=== PATIENT | male | born 1950 | race Caucasian/White ===

== ENCOUNTER 2017-06-04 02:57 | Emergency (ER) | payer OTHER ==
[~2017-06-04] VITALS: Ht 172.7 cm; Wt 81.0 kg
[2017-06-04 02:59] VITALS: Ht 172.7 cm; Wt 81.0 kg
[2017-06-04] MEDS ORDERED: ALBUTEROL 0.083% (NEB) 2.5 MG/3 ML AMP NEB STA (06:22)
[2017-06-04] MEDS ORDERED: IPRATROPIUM (NEB) 0.5 MG/2.5 ML AMP NEB STA (06:22)
[2017-06-04] MEDS ORDERED: predniSONE 20 MG TAB PO STA (06:22)
--- NOTE | 2017-06-04 07:20 | ERD ---
ER Documentation Chief Complaint Chief Complaint cough x 1 month, phlegm, chest congestion, sob today HPI This is a 66-year-old male who presents the emergency department today complaining of cough for the past several months. States he has phlegm and some chest congestion. States he has some shortness of breath. States that he has seen his primary care doctor and was told to come to the ER. Denies any fevers or chills. States that he stop smoking cigarettes many years ago. States that he took antibiotics about a year ago. ROS All systems reviewed and are negative except as per history of present illness. Medications Home Meds Active Scripts Albuterol Sulfate* (Ventolin HFA*) 18 Gm Hfa.aer.ad, 2 PUFF INHALATION Q4H, #1 INHALER Prov:VENU KLEIN PA-C 06/04/17 Azithromycin* (Zithromax*) 250 Mg Tablet, 250 MG PO .ZPACK DIRECTED, #6 TAB TAKE 500 MG (2 TABS) THE FIRST DAY THEN 250 MG (1 TAB) DAYS 2-5 Prov:VENU KLEIN PA-C 06/04/17 PMhx/Soc Medical and Surgical Hx: pt denies Medical Hx, pt denies Surgical Hx Hx Alcohol Use: No Hx Substance Use: No Hx Tobacco Use: No Smoking Status: Never smoker Physical Exam Vitals Vital Signs Date Time Temp Pulse Resp B/P Pulse Ox O2 Delivery O2 Flow Rate FiO2 06/04/17 06:40 76 24 96 21 06/04/17 02:59 97.2 76 20 156/82 96 Physical Exam Const: talkative, NAD Head: Atraumatic Eyes: Normal Conjunctiva ENT: Normal External Ears, Nose and Mouth. Neck: Full range of motion..~ No meningismus. Resp: Coarse breath sounds bilaterally in all lung gonzalez. Cardio: Regular rate and rhythm, no murmurs Abd: Soft, non tender, non distended. Normal bowel sounds Skin: No petechiae or rashes Back: No midline or flank tenderness Ext: No cyanosis, or edema Neur: Awake and alert Psych: Normal Mood and Affect Results 24 hrs Current Medications Medications (Trade) Dose Ordered Sig/Jayden Route PRN Reason Start Time Stop Time Status Last Admin Dose Admin Albuterol (Proventil 0.083% (Neb)) 5 mg ONCE STAT NEB 06/04/17 06:22 06/04/17 06:24 DC 06/04/17 06:44 Ipratropium [place] (Atrovent 0.02% (Neb)) 0.5 mg ONCE STAT NEB 06/04/17 06:22 06/04/17 06:24 DC 06/04/17 06:44 Prednisone (Prednisone) 60 mg ONCE STAT PO 06/04/17 06:22 06/04/17 06:24 DC 06/04/17 06:30 DIAGNOSTIC IMAGING REPORT Patient: MIQUEL SOUSA : 1950 Age: 66 Sex: M MR #: [id number] DOS: 06/04/17621 Ordering MD: VENU KLEIN PA-C Location: [facility] Room/Bed: PROCEDURE: XR Chest. CLINICAL INDICATION: Asthma exacerbation. TECHNIQUE: Single frontal view of the chest was obtained. COMPARISON: None FINDINGS: The cardiomediastinal silhouette is normal in size. There are aortic calcifications. No focal consolidation is seen. Lung volumes are shallow with mild bibasilar opacities, likely representing atelectasis. No pleural effusion is seen. No definite pneumothorax. No acute osseous abnormality. IMPRESSION: 1. Shallow lung volumes with mild bibasilar opacities, likely representing atelectasis. RPTAT: [facility] Physician [place] Date Time Electronically viewed and signed by Thomas Montague Physician on 06/04/2017 07:22 PH/ CC: VENU KLEIN PA-C Procedures/MDM This is a 66-year-old male who presents the emergency department today complaining of cough for "months". Patient is afebrile and otherwise well- appearing. He is very talkative in the exam room. His oxygen saturation is 96 % however given patient's duration of symptoms and age I did obtain a chest x- ray. Patient was also given a breathing treatment as he had some coarse breath sounds on physical exam. He was also given p.o. prednisone Chest X-ray shows shallow lung volumes with mild bibasilar opacities likely representing atelectasis. There is no pleural effusion or pneumothorax. Portable feeling significantly better after a breathing treatment and stated " I can breath again". Symptoms at this time is consistent with lower respiratory infection. Given patients duration of symptoms and physical exam I will give the patient a prescription for azithromycin, and ventolin inhaler. Suspicion for PE, abscess, pleural effusion or pneumothorax. At this time the patient is stable for discharge and outpatient management. Patient should follow up with their PCP in the next 1-2 days. They may return to the emergency department sooner for any persistent or worsening of symptoms. Patient understood and agreed with the plan. Discussed the patient with Dr. Kinney and he is in agreement with the plan. Departure Diagnosis: Primary Impression: Cough Condition: Fair VENU KLEIN PA-C Jun 04, 2017 07:20
[2017-06-04] MEDS ORDERED: AZIT250T94 PO (07:31)
[2017-06-04] MEDS ORDERED: ALBU18HF INHALATION (07:32)
== END 2017-06-04 07:42 | disposition home or self-care (01) ==
LOC: FTE 02:57
DX: R05 Cough (principal)
CPT/HCPCS: 71010; 94664; 99284; J7512

== ENCOUNTER 2017-06-08 07:36 | Emergency (ER) | payer OTHER ==
[~2017-06-08] VITALS: Wt 79.2 kg
[~2017-06-08 07:36] MED LIST: ALBU18HF INHALATION; AZIT250T94 PO
[2017-06-08] MEDS ORDERED: ALBUTEROL 0.083% (NEB) 2.5 MG/3 ML AMP HHN STA (07:57)
[2017-06-08] MEDS ORDERED: predniSONE 50 MG TAB PO ONE (08:00)
[2017-06-08] MEDS ORDERED: IPRATROPIUM (NEB) 0.5 MG/2.5 ML AMP HHN ONE (08:00)
--- NOTE | 2017-06-08 08:01 | ERD ---
ER Documentation Chief Complaint Chief Complaint sob,productive cough , seen here last tuesday HPI Patient is a 66-year-old male who presents to the ER with gradual onset, constant, progressive cough productive of yellow sputum associate with shortness of breath for the last 2-3 days. The patient was seen in the ER 5 days ago with the same symptoms and was prescribed a Z-Aydin. He states that he received a breathing treatment and his symptoms improved. He had a rebound and symptoms started 2-3 days ago. He has an extensive smoking history but does not currently smoke. He denies fever, vomiting, chest pain, back pain. ROS All systems reviewed and are negative except as per history of present illness. Medications Home Meds Active Scripts Prednisone (Prednisone) 50 Mg Tab, 50 MG PO DAILY for 4 Days, TAB Prov:KYLE ESTRADA MD 06/08/17 Albuterol Sulfate* (Ventolin HFA*) 18 Gm Hfa.aer.ad, 2 PUFF INHALATION Q4H, #1 INHALER Prov:VENU KLEIN PA-C 06/04/17 Discontinued Scripts Azithromycin* (Zithromax*) 250 Mg Tablet, 250 MG PO .ZPACK DIRECTED, #6 TAB TAKE 500 MG (2 TABS) THE FIRST DAY THEN 250 MG (1 TAB) DAYS 2-5 Prov:VENU KLEIN PA-C 06/04/17 Allergies Allergies: Coded Allergies: No Known Allergy (Unverified , 06/08/17) PMhx/Soc Medical history: None Past surgical history: Denies Social history: Former smoker, quit 1 year ago, denies alcohol or illicit drugs History of Surgery: No Anesthesia Reaction: No Hx Neurological Disorder: No Hx Respiratory Disorders: No Hx Cardiac Disorders: No Hx Psychiatric Problems: No Hx Miscellaneous Medical Probl: No Hx Alcohol Use: No Hx Substance Use: No Hx Tobacco Use: No Smoking Status: Never smoker FmHx Noncontributory Physical Exam Vitals Vital Signs Date Time Temp Pulse Resp B/P Pulse Ox O2 Delivery O2 Flow Rate FiO2 06/08/17 11:50 98.1 70 21 159/89 95 Room Air 06/08/17 11:07 93 Room Air 06/08/17 09:09 Nasal Cannula 2.0 06/08/17 09:09 76 21 147/85 97 Nasal Cannula 2.0 06/08/17 08:21 2.0 06/08/17 08:21 95 18 95 Nasal Cannula 2.0 06/08/17 07:39 98.1 90 18 134/96 91 Physical Exam Const: Alert, no acute distress Head: Atraumatic Eyes: Normal Conjunctiva no pallor, no icterus ENT: Normal External Ears, Nose and Mouth. Memory is moist Neck: Full range of motion. No JVD Resp: Clear to auscultation bilaterally, slightly prolonged expirations and pursed lip breathing, no retractions, no rales, no wheezes Cardio: Regular rate and rhythm, no murmurs Abd: Soft, non tender, non distended. Skin: No petechiae or rashes Ext: No cyanosis, or edema Neur: Awake and alert cranial nerves II through XII intact bilaterally, strength and sensation full in 4 extremities. Psych: Normal Mood and Affect Results 24 hrs Current Medications Medications (Trade) Dose Ordered Sig/Jayden Route PRN Reason Start Time Stop Time Status Last Admin Dose Admin Albuterol (Proventil 0.083% (Neb)) 5 mg ONCE STAT [facility] 06/08/17 07:57 06/08/17 07:59 DC 06/08/17 08:20 Prednisone (Prednisone) 50 mg ONCE ONCE PO 06/08/17 08:00 06/08/17 08:01 DC 06/08/17 08:13 Ipratropium [place] (Atrovent 0.02% (Neb)) 0.5 mg ONCE ONCE N 06/08/17 08:00 06/08/17 08:01 DC 06/08/17 08:20 Procedures/MDM MDM: Patient is a 66-year-old male with extensive smoking history who was seen in the ER last week for productive cough and shortness of breath. He responded well to albuterol and was discharged with a Z-Aydin. He returns today with a recurrence of symptoms. He has not been smoking. His chest x-ray does not show signs of pneumonia. He does not have respiratory distress. He does not have symptoms that are concerning for coronary ischemia or pulmonary embolism. He was given a nebulizer treatment in the ER with significant improvement. He was satting in the low to mid 90s on room air after treatment. He did not have significant wheezing. I will discharge him with a 4 day course of prednisone, and have advised him to follow-up with his PMD. He has an albuterol inhaler at home. I suspect that he has underlying COPD from smoking, but this diagnosis has not yet been established. Departure Diagnosis: Primary Impression: Acute bronchitis Bronchitis organism: unspecified organism Qualified Code: J20.9 - Acute bronchitis, unspecified organism Condition: KYLE Luis MD Jun 08, 2017 08:01
--- NOTE | 2017-06-08 08:27 | RADRPT ---
PROCEDURE: XR Chest. CLINICAL INDICATION: Cough TECHNIQUE: AP Portable chest. COMPARISON: 06/04/2017 chest x-ray FINDINGS: The soft tissues and bones are remarkable for mild thoracic spondylosis and bilateral acromioclavicu lar osteoarthropathy. Bibasilar discoid atelectasis are prominent interstitium is again noted howeve r decreased from prior study. The heart size is normal. Mild vascular calcifications are present of the thoracic aorta. No focal infiltrates, masses, or effusions are noted. No pneumothorax is presen t. IMPRESSION: 1. Interval decreased bibasilar atelectasis or interstitial infiltrates. 2. Mild atherosclerotic vascular disease 3. Thoracic spondylosis and bilateral acromioclavicular osteoarthropathy RPTAT: HDC .Sri Luna MD, Date Time Electronically viewed and signed by .Sir Luna MD, on 06/08/2017 08:26 .C/
[2017-06-08] MEDS ORDERED: PRED50 PO (11:12)
[2017-06-08 11:50] VITALS: BP 159/89; PULSE 70; RESP 21; TEMP 98.1
== END 2017-06-08 12:05 | disposition home or self-care (01) ==
LOC: E/R 07:36
DX: J20.9 Acute bronchitis, unspecified (principal)
CPT/HCPCS: 71010; 94664; 99283; J7512

== ENCOUNTER 2017-06-14 15:10 | Emergency (ER) | payer OTHER ==
[~2017-06-14] VITALS: Ht 172.7 cm; Wt 79.0 kg
[~2017-06-14 15:10] MED LIST changes: -AZIT250T94 PO; +PRED50 PO
[2017-06-14 15:14] VITALS: Ht 172.7 cm; Wt 79.0 kg
[2017-06-14] MEDS ORDERED: ALBUTEROL 0.083% (NEB) 2.5 MG/3 ML AMP HHN STA ×2 (16:27→18:49)
[2017-06-14] MEDS ORDERED: IPRATROPIUM (NEB) 0.5 MG/2.5 ML AMP HHN ONE (16:30)
[2017-06-14 17:56] LABS: BASOPHILS % 0.4 % (0.0-2.0); EOSINOPHILS # 0.6 10^3/ul (0.0-0.5); EOSINOPHILS % 6.3 % (0.0-7.0); HEMATOCRIT 42.6 % (42.0-52.0); HEMOGLOBIN 14.2 g/dl (14.0-18.0); LYMPHOCYTES % 21.9 % (15.0-51.0); MEAN CORPUSCULAR HEMOGLOBIN 31.7 pg (29.0-33.0); MEAN CORPUSCULAR HGB CONC 33.3 g/dl (32.0-37.0); MEAN CORPUSCULAR VOLUME 95.1 fl (82.0-101.0); MEAN PLATELET VOLUME 11.8 fl (7.4-10.4); MONOCYTE # 0.8 10^3/ul (0.3-0.9); MONOCYTES % 8.6 % (0.0-11.0); NEUTROPHIL # 5.7 10^3/ul (1.6-7.5); PLATELET COUNT 184 10^3/UL (140-415); RED BLOOD COUNT 4.48 10^6/ul (4.70-6.10); RED CELL DISTRIBUTION WIDTH 11.9 % (11.5-14.5); WHITE BLOOD COUNT 9.2 10^3/ul (4.8-10.8)
[2017-06-14 18:22] LABS: CALCIUM 9.4 mg/dl (8.4-10.2); CREATININE 1.11 mg/dl (0.61-1.24)
--- NOTE | 2017-06-14 18:44 | RADRPT ---
PROCEDURE: XR Chest. CLINICAL INDICATION: Cough. Chest pain. TECHNIQUE: Single frontal view of the chest was obtained COMPARISON: Chest radiograph dated June 08, 2017. FINDINGS: The heart and mediastinum are within normal limits. Aortic calcifications are present. The lungs are clear. There is no pleural effusion or pneumothorax. Degenerative changes of the spine and shoulder joints are present. IMPRESSION: 1. No acute cardiopulmonary disease. RPTAT:AAJJ Justo Gonzalez Physician Date Time Electronically viewed and signed by Justo Gonzalez Physician on 06/14/2017 18:44 QL/
[2017-06-14] MEDS ORDERED: CEPASTAT LOZENGE MT ONE (19:30)
[2017-06-14] MEDS ORDERED: PRED20TA PO (20:18)
[2017-06-14] MEDS ORDERED: HYDR-906 PO (20:18)
[2017-06-14] MEDS ORDERED: LEVO500T72 PO (20:18)
--- NOTE | 2017-06-14 20:29 | ERD ---
ER Documentation Chief Complaint Chief Complaint cough , sob x 1 week HPI This 66-year-old male presents the third time for cough and shortness of breath. He has no chest pain except for when he coughs along his lateral ribs bilaterally. He denies fevers and chills. Does have a history of smoking. ROS All systems reviewed and are negative except as per history of present illness. Medications Home Meds Active Scripts Hydrocodone/Acetaminophen ([place] 5-325 Tablet) 1 Each Tablet, 1 EACH PO Q6, #14 TAB Prov:JOSH GERMAIN DO 06/14/17 Prednisone* (Prednisone*) 20 Mg Tab, 60 MG PO DAILY for 5 Days, TAB Prov:JOSH GERMAIN DO 06/14/17 Levofloxacin* (Levaquin*) 500 Mg Tablet, 500 MG PO DAILY for 7 Days, TAB Prov:JOSH GERMAIN DO 06/14/17 Prednisone (Prednisone) 50 Mg Tab, 50 MG PO DAILY for 4 Days, TAB Prov:KYLE ESTRADA MD 06/08/17 Albuterol Sulfate* (Ventolin HFA*) 18 Gm Hfa.aer.ad, 2 PUFF INHALATION Q4H, #1 INHALER Prov:VENU KLEIN PA-C 06/04/17 Discontinued Scripts Azithromycin* (Zithromax*) 250 Mg Tablet, 250 MG PO .MatthewPACK DIRECTED, #6 TAB TAKE 500 MG (2 TABS) THE FIRST DAY THEN 250 MG (1 TAB) DAYS 2-5 Prov:VENU KLEIN PA-C 06/04/17 Allergies Allergies: Coded Allergies: No Known Allergy (Unverified , 06/08/17) PMhx/Soc History of Surgery: No Anesthesia Reaction: No Hx Neurological Disorder: No Hx Respiratory Disorders: No Hx Cardiac Disorders: No Hx Psychiatric Problems: No Hx Miscellaneous Medical Probl: No Hx Alcohol Use: No Hx Substance Use: No Hx Tobacco Use: No Physical Exam Vitals Vital Signs Date Time Temp Pulse Resp B/P Pulse Ox O2 Delivery O2 Flow Rate FiO2 06/14/17 19:05 98 20 99 21 06/14/17 16:36 89 18 96 21 06/14/17 15:14 98.2 100 20 185/89 94 Physical Exam Const: [] Moderate distress Head: Atraumatic Eyes: Normal Conjunctiva ENT: Normal External Ears, Nose and Mouth. Neck: Full range of motion..~ No meningismus. Resp: Bilateral expiratory wheezing with prolonged expiratory time Cardio: Regular rate and rhythm, no murmurs Skin: No petechiae or rashes Ext: No cyanosis, or edema Neur: Awake and alert oriented 3, no focal deficits Psych: Normal Mood and Affect Result Diagram: 06/14/17 1740 06/14/17 1740 Results 24 hrs Laboratory Tests Test 06/14/17 17:40 White Blood Count 9.210^3/ul Red Blood Count 4.4810^6/ul Hemoglobin 14.2g/dl Hematocrit 42.6% Mean Corpuscular Volume 95.1fl Mean Corpuscular Hemoglobin 31.7pg Mean Corpuscular Hemoglobin Concent 33.3g/dl Red Cell Distribution Width 11.9% Platelet Count 49214^3/UL Mean Platelet Volume 11.8fl Neutrophils % 62.0% Lymphocytes % 21.9% Monocytes % 8.6% Eosinophils % 6.3% Basophils % 0.4% Nucleated Red Blood Cells % 0.0/100WBC Neutrophils # 5.710^3/ul Lymphocytes # 2.010^3/ul Monocytes # 0.810^3/ul Eosinophils # 0.610^3/ul Basophils # 0.010^3/ul Nucleated Red Blood Cells # 0.010^3/ul Sodium Level 141mmol/L Potassium Level 4.0mmol/L Chloride Level 101mmol/L Carbon Dioxide Level 31mmol/L Anion Gap 13 Blood Urea Nitrogen 19mg/dl Creatinine 1.11mg/dl Glucose Level 110mg/dl Calcium Level 9.4mg/dl B-Type Natriuretic Peptide 191PG/ML Current Medications Medications (Trade) Dose Ordered Sig/Jayden Route PRN Reason Start Time Stop Time Status Last Admin Dose Admin Albuterol (Proventil 0.083% (Neb)) 5 mg ONCE STAT [facility] 06/14/17 16:27 06/14/17 16:28 DC 06/14/17 16:36 Ipratropium [place] (Atrovent 0.02% (Neb)) 0.5 mg ONCE ONCE [facility] 06/14/17 16:30 06/14/17 16:31 DC 06/14/17 16:36 Albuterol (Proventil 0.083% (Neb)) 5 mg ONCE STAT [facility] 06/14/17 18:49 06/14/17 18:53 DC 06/14/17 19:04 Phenol (Cepastat Lozenge) 1 lozenge ONCE ONCE [place] 06/14/17 19:30 06/14/17 19:31 DC 06/14/17 19:42 Procedures/MDM 66-year-old male with acute bronchitis with wheezing. Likely does have a component of undiagnosed COPD. Acquired to breathing treatments to minimize the wheezing. Does still have mild wheezing. I offered the patient admission he said he deathly does not want to stay in the hospital. I am going to discharge him with Levaquin as this level of coughing and shortness of breath is not normal to him and he did not respond to azithromycin. Also discharging with 5 days of 60 mg prednisone. Instructed him to see his primary care doctor and obtain echocardiogram also. He has a very minimally elevated BNP. No signs of acute cardiac ischemia. EKG interpretation normal sinus rhythm rate of 84, normal axis, normal intervals , no ST or T-wave changes concerning for acute ischemia. 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 Departure Diagnosis: Primary Impression: Acute bronchitis Additional Impression: Respiratory distress Condition: Fair Patient Instructions: Bronchitis With Wheezing (Adult) Additional Instructions: Call your primary care doctor TOMORROW for an appointment during the next 2-3 days.See the doctor sooner or return here if your condition worsens before your appointment time. JOSH GERMAIN DO Jun 14, 2017 20:29
[2017-06-14 20:33] VITALS: BP 159/91; PULSE 98; RESP 20; TEMP 98.3
[2017-06-15] MEDS ORDERED: QUET200T PO (02:57)
[2017-06-15] MEDS ORDERED: OMEP20CA16 PO (02:58)
== END 2017-06-14 20:32 | disposition home or self-care (01) ==
LOC: FTE 15:10
DX: J20.9 Acute bronchitis, unspecified (principal); R06.03 Acute respiratory distress
CPT/HCPCS: 71010; 80048; 83880; 85025; 87400; 93005; 94640; 94664

== ENCOUNTER 2017-06-14 23:12 | Emergency (ER) | payer OTHER ==
[~2017-06-14] VITALS: Ht 172.7 cm; Wt 91.5 kg
[~2017-06-14 23:12] MED LIST changes: +HYDR-906 PO; +LEVO500T72 PO; +PRED20TA PO
[2017-06-14 23:17] VITALS: Ht 172.7 cm; Wt 91.5 kg
[2017-06-15] MEDS ORDERED: IPRATROPIUM (NEB) 0.5 MG/2.5 ML AMP NEB STA (01:30)
[2017-06-15] MEDS ORDERED: ALBUTEROL 0.083% (NEB) 2.5 MG/3 ML AMP NEB STA (01:30)
[2017-06-15 01:45] VITALS: BP 134/84; PULSE 84; RESP 18; TEMP 98.9
[2017-06-15] MEDS ORDERED: QUET200T PO (02:57)
[2017-06-15] MEDS ORDERED: OMEP20CA16 PO (02:58)
--- NOTE | 2017-06-15 03:34 | ERD ---
ER Documentation Chief Complaint Chief Complaint bib ra for sob, here earlier today, unable to fill script HPI This is a 58-year-old male brought in by rescue for shortness of breath. Patient was here earlier today with similar complaints and was diagnosed with bronchitis. Patient did not fill his prescriptions. Continues to have shortness of breath. No nausea no vomiting or chills. No chest pain. ROS All systems reviewed and are negative except as per history of present illness. Medications Home Meds Active Scripts Albuterol Sulfate* (Ventolin HFA*) 18 Gm Hfa.aer.ad, 2 PUFF INHALATION Q4H, #1 INHALER Prov:VENU KLEIN PA-C 06/04/17 Reported Medications Omeprazole* (Omeprazole*) 20 Mg Capsule.dr, 20 MG PO DAILY, #30 CAP 06/15/17 Quetiapine Fumarate* (Seroquel*) 200 Mg Tablet, 200 MG PO BID, #60 TAB 06/15/17 Discontinued Scripts Hydrocodone/Acetaminophen ([place] 5-325 Tablet) 1 Each Tablet, 1 EACH PO Q6, #14 TAB Prov:JOSH GERMAIN DO 06/14/17 Prednisone* (Prednisone*) 20 Mg Tab, 60 MG PO DAILY for 5 Days, TAB Prov:JOSH GERMAIN DO 06/14/17 Levofloxacin* (Levaquin*) 500 Mg Tablet, 500 MG PO DAILY for 7 Days, TAB Prov:JOSH GERMAIN DO 06/14/17 Prednisone (Prednisone) 50 Mg Tab, 50 MG PO DAILY for 4 Days, TAB Prov:KYLE ESTRADA MD 06/08/17 Azithromycin* (Zithromax*) 250 Mg Tablet, 250 MG PO .SHADI DIRECTED, #6 TAB TAKE 500 MG (2 TABS) THE FIRST DAY THEN 250 MG (1 TAB) DAYS 2-5 Prov:VENU KLEIN PA-C 06/04/17 Allergies Allergies: Coded Allergies: No Known Allergy (Unverified , 06/08/17) PMhx/Soc Medical and Surgical Hx: pt denies Surgical Hx History of Surgery: No Anesthesia Reaction: No Hx Neurological Disorder: No Hx Respiratory Disorders: No Hx Cardiac Disorders: No Hx Psychiatric Problems: No Hx Miscellaneous Medical Probl: No Hx Alcohol Use: No Hx Substance Use: No Hx Tobacco Use: Yes (Quit 1 year ago) Smoking Status: Former smoker Physical Exam Vitals Vital Signs Date Time Temp Pulse Resp B/P Pulse Ox O2 Delivery O2 Flow Rate FiO2 06/15/17 01:56 89 20 96 21 06/15/17 01:45 98.9 84 18 134/84 96 Room Air 06/14/17 23:17 98.9 91 18 134/84 96 Physical Exam Const: [] Head: Atraumatic Eyes: Normal Conjunctiva ENT: Normal External Ears, Nose and Mouth. Neck: Full range of motion..~ No meningismus. Resp: Scattered wheezing bilaterally Cardio: Regular rate and rhythm, no murmurs Abd: Soft, non tender, non distended. Normal bowel sounds Skin: No petechiae or rashes Back: No midline or flank tenderness Ext: No cyanosis, or edema Neur: Awake and alert Psych: Normal Mood and Affect Results 24 hrs Current Medications Medications (Trade) Dose Ordered Sig/Jayden Route PRN Reason Start Time Stop Time Status Last Admin Dose Admin Albuterol (Proventil 0.083% (Neb)) 5 mg ONCE STAT NEB 06/15/17 01:30 06/15/17 01:32 DC Ipratropium [place] (Atrovent 0.02% (Neb)) 0.5 mg ONCE STAT NEB 06/15/17 01:30 06/15/17 01:32 DC Procedures/MDM Patient's respiratory status has stabilized while in the department and is appropriate for outpatient work up. Exam and work up not consistent w/ impending respiratory failure or cardiovascular collapse. Departure Diagnosis: Primary Impression: Shortness of breath Condition: Stable DANA LUIS Jun 15, 2017 03:34
== END 2017-06-15 05:36 | disposition home or self-care (01) ==
LOC: E/R 23:12
DX: R06.02 Shortness of breath (principal); Z87.891 Personal history of nicotine dependence
CPT/HCPCS: 94664; 99283

== ENCOUNTER 2017-06-26 19:07 | Inpatient (IN) | END 2017-06-30 20:15 | DRG 191 ==